=== PATIENT | male | born 1950 | race Caucasian/White ===

== ENCOUNTER 2020-12-16 16:33 | Emergency (ER) | payer MEDICARE, MEDICAID ==
[2020-12-16 21:52] LABS: HEMOGLOBIN 14.2 gm/dl (14.0-17.5); RED BLOOD COUNT 4.15 M/UL (4.20-5.50); WHITE BLOOD COUNT 5.8 K/UL (4.5-11.0)
[2020-12-16 22:33] LABS: BUN/CREATININE RATIO 22 (0-10)
== END 2020-12-17 17:57 | disposition other institution (70) ==
LOC: ER1 16:33
PROVIDERS: Emergency Medicine
DX: R53.1 Weakness (principal); C78.00 Secondary malignant neoplasm of unspecified lung; C71.9 Malignant neoplasm of brain, unspecified; Z20.822 Contact with and (suspected) exposure to COVID-19
CPT/HCPCS: 70553; 80053; 85025; 93005; 96374; 96376; 99285; A9577; J1100; J7030; U0002

== ENCOUNTER → 2021-02-01 | Outpatient (CLI) | payer MEDICARE | LOC: MRI 08:44 | DX: D49.6 Neoplasm of unspecified behavior of brain (principal) | CPT/HCPCS: 36415; 70553; 82565; A9577 ==

== ENCOUNTER → 2021-03-23 | Outpatient (CLI) | payer MEDICARE | LOC: CT 13:33 | DX: Z12.89 Encounter for screening for malignant neoplasm of other sites (principal); C20 Malignant neoplasm of rectum; C78.02 Secondary malignant neoplasm of left lung; C79.31 Secondary malignant neoplasm of brain; G81.94 Hemiplegia, unspecified affecting left nondominant side | CPT/HCPCS: 71260; Q9967 ==

== ENCOUNTER → 2021-06-04 | Day surgery (SDC) | payer MEDICARE ==
[~2021-06-04] MED LIST: ASPIRIN81 MG PO; ATORVASTATIN CA40 MG PO; FLOMAX 0.4 MG0.4 MG PO; LISINOPRIL5 MG PO; LOPRESSOR 25 MG25 MG PO; MONTELUKAST SOD10 MG PO; PAROXETINE HCL30 MG PO
== END | disposition home or self-care (01) ==
LOC: OR 06:28
DX: D12.2 Benign neoplasm of ascending colon (principal); C79.9 Secondary malignant neoplasm of unspecified site; I10 Essential (primary) hypertension; E78.5 Hyperlipidemia, unspecified; F17.210 Nicotine dependence, cigarettes, uncomplicated; Z85.038 Personal history of other malignant neoplasm of large intestine; Z93.3 Colostomy status; Z79.82 Long term (current) use of aspirin; Z79.899 Other long term (current) drug therapy; Z20.822 Contact with and (suspected) exposure to COVID-19
CPT/HCPCS: J2704; J7030

== ENCOUNTER → 2021-08-13 | Outpatient (CLI) | payer MEDICARE | LOC: MRI 10:43 | DX: D32.0 Benign neoplasm of cerebral meninges (principal); C79.31 Secondary malignant neoplasm of brain | CPT/HCPCS: 36415; 70553; 82565; 84520; A9577 ==

== ENCOUNTER → 2021-12-14 | Outpatient (CLI) | payer MEDICARE ==
[~2021-12-14] MED LIST changes: +BUSPIRONE HCL10 MG PO; +LISINOPRIL-HCT1 EACH PO; +NITROGLYCERIN0.4 MG SL; +PROSCAR5 MG PO; +TESTOSTERO200 MG/1 M IM; +VITAMIN D325 MC6 PO
== END ==
LOC: KOH-I 10:00 → CT 13:00
DX: M79.652 Pain in left thigh (principal); C20 Malignant neoplasm of rectum; G81.94 Hemiplegia, unspecified affecting left nondominant side
CPT/HCPCS: 73700

== ENCOUNTER 2021-12-16 17:49 | Inpatient (IN) | payer MEDICARE, OTHER ==
[~2021-12-16] VITALS: Ht 180.3 cm; Wt 77.6 kg
[~2021-12-16 17:49] MED LIST changes: -BUSPIRONE HCL10 MG PO; -LISINOPRIL-HCT1 EACH PO; -NITROGLYCERIN0.4 MG SL; -PROSCAR5 MG PO; -TESTOSTERO200 MG/1 M IM; -VITAMIN D325 MC6 PO
[2021-12-16 19:10] LABS: HEMOGLOBIN 13.6 gm/dl (14.0-17.5); RED BLOOD COUNT 3.86 M/UL (4.20-5.50); WHITE BLOOD COUNT 5.5 K/UL (4.5-11.0)
[2021-12-16 19:35] LABS: BUN/CREATININE RATIO 21 (0-10)
[2021-12-16] MEDS ORDERED: LISINOPRIL-HCT1 EACH PO (23:11)
[2021-12-16] MEDS ORDERED: PROSCAR5 MG PO (23:11)
[2021-12-16] MEDS ORDERED: NITROGLYCERIN0.4 MG SL (23:12)
[2021-12-16] MEDS ORDERED: TESTOSTERO200 MG/1 M IM (23:13)
[2021-12-16] MEDS ORDERED: VITAMIN D325 MC6 PO (23:15)
[2021-12-16] MEDS ORDERED: BUSPIRONE HCL10 MG PO (23:15)
[2021-12-17 01:53] LABS: HEMOGLOBIN 12.1 gm/dl (14.0-17.5); RED BLOOD COUNT 3.49 M/UL (4.20-5.50); WHITE BLOOD COUNT 4.7 K/UL (4.5-11.0)
[2021-12-17 02:24] LABS: BUN/CREATININE RATIO 15 (0-10)
[2021-12-17] MEDS ORDERED: LACTULOSE10 GM/15 M PO (17:36)
[2021-12-17] MEDS ORDERED: ONDANSETRON ODT4 MG PO (17:36)
[2021-12-17] MEDS ORDERED: PERCOCET 10-321 EACH PO (17:37)
[2021-12-18 03:00] LABS: HEMOGLOBIN 12.9 gm/dl (14.0-17.5); RED BLOOD COUNT 3.67 M/UL (4.20-5.50); WHITE BLOOD COUNT 5.1 K/UL (4.5-11.0)
[2021-12-18 03:42] LABS: BUN/CREATININE RATIO 21 (0-10)
[2021-12-18] MEDS ORDERED: ENDOCET 10-3251 EACH PO (14:50)
[2021-12-18] MEDS ORDERED: CYCLOBENZAPRINE10 MG PO (14:50)
[2021-12-18] MEDS ORDERED: ELIQUIS2.5 MG PO (14:50)
[2021-12-18] MEDS ORDERED: ZOFRAN 4 MG TAB4 MG PO (14:50)
--- NOTE | 2021-12-19 00:41 | NUR ---
PATIENT WAS GIVEN INCENTIVE SPIROMETE AND EDUCATED ON THE PROPER USE,SCDS AND STOCKINGS WERE OFFERD AND PATIENT WAS INFORMED ON IMPORTANCE OF USE. WILL CONTINUE TO OFFER TO PATIENT
[2021-12-19 02:54] LABS: HEMOGLOBIN 11.9 gm/dl (14.0-17.5); RED BLOOD COUNT 3.42 M/UL (4.20-5.50)
[2021-12-19 03:14] LABS: WHITE BLOOD COUNT 7.4 K/UL (4.5-11.0)
[2021-12-19 03:21] LABS: BUN/CREATININE RATIO 28 (0-10)
[2021-12-20 02:54] LABS: HEMOGLOBIN 11.1 gm/dl (14.0-17.5); RED BLOOD COUNT 3.14 M/UL (4.20-5.50); WHITE BLOOD COUNT 6.6 K/UL (4.5-11.0)
[2021-12-20 03:24] LABS: BUN/CREATININE RATIO 24 (0-10)
[2021-12-21 02:19] LABS: HEMOGLOBIN 10.5 gm/dl (14.0-17.5); RED BLOOD COUNT 3.04 M/UL (4.20-5.50); WHITE BLOOD COUNT 6.4 K/UL (4.5-11.0)
[2021-12-21 02:38] LABS: BUN/CREATININE RATIO 22 (0-10)
[2021-12-21 19:41] LABS: HEMOGLOBIN 11.7 gm/dl (14.0-17.5); RED BLOOD COUNT 3.37 M/UL (4.20-5.50); WHITE BLOOD COUNT 9.6 K/UL (4.5-11.0)
[2021-12-21 19:49] LABS: BUN/CREATININE RATIO 19 (0-10)
[2021-12-22 02:25] LABS: HEMOGLOBIN 10.9 gm/dl (14.0-17.5); RED BLOOD COUNT 3.12 M/UL (4.20-5.50); WHITE BLOOD COUNT 8.5 K/UL (4.5-11.0)
[2021-12-22 02:44] LABS: BUN/CREATININE RATIO 22 (0-10)
[2021-12-23 03:44] LABS: HEMOGLOBIN 10.1 gm/dl (14.0-17.5); RED BLOOD COUNT 2.96 M/UL (4.20-5.50)
[2021-12-23 03:48] LABS: WHITE BLOOD COUNT 5.4 K/UL (4.5-11.0)
[2021-12-23 04:11] LABS: BUN/CREATININE RATIO 29 (0-10)
[2021-12-23 14:10] LABS: HEMOGLOBIN 10.3 gm/dl (14.0-17.5)
[2021-12-24 04:34] LABS: HEMOGLOBIN 10.3 gm/dl (14.0-17.5); RED BLOOD COUNT 2.95 M/UL (4.20-5.50); WHITE BLOOD COUNT 5.9 K/UL (4.5-11.0)
[2021-12-24 04:58] LABS: BUN/CREATININE RATIO 28 (0-10)
--- NOTE | 2021-12-24 13:32 | NUR ---
REPORT CALL[facility] TO [facility] TO TRANSPORT PATIENT BY PRIVATE VEHICLE.STATED THEY WOULD TAKE PAPERWORK TO RECIEVING NURSE.
--- NOTE | 2021-12-24 13:38 | NUR ---
MELLY FLOOD GIVEN TO PATIENT AND FAMILY
== END 2021-12-24 13:43 | DRG 522 ==
LOC: ER1 17:49 → M/S 19:15 → CDU 19:15 → M/S 20:42
PROVIDERS: Internal Medicine; Nurse Practitioner; Orthopaedic Surgery; ADMIT Internal Medicine
PROC: 0SRS0JA Replacement of Left Hip Joint, Femoral Surface with Synthetic Substitute, Uncemented, Open Approach (ICD-10-PCS; principal; 2021-12-18 14:16)
PROC: 0QS806Z Reposition Right Femoral Shaft with Intramedullary Internal Fixation Device, Open Approach (ICD-10-PCS; 2021-12-21)
DX: M84.552A Pathological fracture in neoplastic disease, left femur, initial encounter for fracture (principal); C19 Malignant neoplasm of rectosigmoid junction; C79.51 Secondary malignant neoplasm of bone; C79.31 Secondary malignant neoplasm of brain; D62 Acute posthemorrhagic anemia; Z68.41 Body mass index [BMI] 40.0-44.9, adult; M84.551A Pathological fracture in neoplastic disease, right femur, initial encounter for fracture; I10 Essential (primary) hypertension; J44.9 Chronic obstructive pulmonary disease, unspecified; N40.0 Benign prostatic hyperplasia without lower urinary tract symptoms; E78.5 Hyperlipidemia, unspecified; F17.210 Nicotine dependence, cigarettes, uncomplicated; E87.6 Hypokalemia; E83.42 Hypomagnesemia; Z82.49 Family history of ischemic heart disease and other diseases of the circulatory system
CPT/HCPCS: 36415; 70470; 73501; 73502; 76000; 80048; 80053; 81001; 82607; 82962; 83735; 84100; 84439; 84443; 85014; 85018; 85025; 85027; 85610; 85730; 86850; 86900; 86901; 87086; 94760; 96374; 97110; 97110-GP-CQ; 97116; 97116-GP-CQ; 97161; 97164; 97166; 97535; 99284; C1713; C1776; J0690; J1100; J1170; J1885; J2001; J2250; J2270; J2370; J2405; J2704; J2795; J3010; J3370; J3475; J7030; J7050; J7120; Q9967; U0002

== ENCOUNTER 2022-01-03 15:07 | Emergency (ER) | payer MEDICARE ==
[~2022-01-03 15:07] MED LIST changes: +BUSPIRONE HCL10 MG PO; +CYCLOBENZAPRINE10 MG PO; +ELIQUIS2.5 MG PO; +ENDOCET 10-3251 EACH PO; +LACTULOSE10 GM/15 M PO; +LISINOPRIL-HCT1 EACH PO; +NITROGLYCERIN0.4 MG SL; +ONDANSETRON ODT4 MG PO; +PERCOCET 10-321 EACH PO; +PROSCAR5 MG PO; +TESTOSTERO200 MG/1 M IM; +VITAMIN D325 MC6 PO; +ZOFRAN 4 MG TAB4 MG PO
[2022-01-03] MEDS ORDERED: HYDROCODON-ACE1 EAC4 PO (17:14)
== END 2022-01-03 17:40 | disposition home or self-care (01) ==
LOC: ER1 15:07
DX: M84.58XA Pathological fracture in neoplastic disease, other specified site, initial encounter for fracture (principal); C19 Malignant neoplasm of rectosigmoid junction; C79.51 Secondary malignant neoplasm of bone; I10 Essential (primary) hypertension
CPT/HCPCS: 72125; 72128; 93005; 99284